=== PATIENT | male | born 1965 | race Caucasian/White ===

== ENCOUNTER → 2017-05-27 | Outpatient (CLI) | payer OTHER ==
[~2017-05-27] MED LIST: BACL10TA PO; EFFSR150 PO; GLC/500 PO; OXYC-106 PO; PLV75 PO; PREG200C PO; SIMV10TA2 PO; [UNRECOGNIZED DRUG - CODE] PO
--- NOTE | 2017-05-27 13:50 | DIAGNOSTIC IMAGING REPORT ---
L-SPINE MIN 4 VIEWS ROUTINE CLINICAL HISTORY: LUMBAR RADICULOPATHY COMPARISON STUDY: No previous studies for comparison. FINDINGS: There are postsurgical changes of a L5-S1 discectomy, interbody fusion and posterior laminectomy. There is pedicle screw posterior fixation at the L5-S1 level. There are no acute fractures. No subluxations are visualized. The provided lateral view is significantly obliqued making evaluation of the hardware difficult. There is a bony defect involving the right iliac crest, likely postsurgical. IMPRESSION: 1. No acute fractures or subluxations 2. Postsurgical changes the L5-S1 level Electronically signed by: Ken Mejias M.D. 05/27/2017 1:49 PM Dictated Date/Time: 05/27/2017 1:45 PM
== END | disposition home or self-care (01) ==
LOC: C.RAD 12:35
PROVIDERS: ATTEND Psychiatry & Neurology Neurology
DX: M54.16 Radiculopathy, lumbar region (principal); Z98.890 Other specified postprocedural states